=== PATIENT | male | born 1980 | race Caucasian/White ===

== ENCOUNTER 2021-04-23 08:01 | Emergency (ER) | payer BC ==
[2021-04-23 08:07] VITALS: BP 137/97; PULSE 100; RESP 16; TEMP 98.2
--- NOTE | 2021-04-23 08:34 | ED ---
General Adult HPI - General Chief complaint: Recheck/Abnormal Lab/Rx Stated complaint: lab reckeck Time Seen by Provider: 04/23/21 08:08 Source: patient, RN notes reviewed Mode of arrival: ambulatory Limitations: no limitations - History of Present Illness Initial comments: This a 40-year-old male presents emergency Department with police for independent blood draw. Patient was requesting blood draw as he was arrested for possible driving under the influence. Patient patient denies drug or alcohol patient denies any physical complaints. - Related Data Allergies Allergy/AdvReac Type Severity Reaction Status Date / Time shellfish derived Allergy Unknown Verified 04/23/21 08:07 Review of Systems ROS Statement: Those systems with pertinent positive or pertinent negative responses have been documented in the HPI. ROS Other: All systems not noted in ROS Statement are negative. Past Medical History Past Medical History: No Reported History History of Any Multi-Drug Resistant Organisms: None Reported Past Surgical History: No Surgical Hx Reported Past Psychological History: No Psychological Hx Reported Smoking Status: Unknown if ever smoked Past Alcohol Use History: Unable to Obtain Past Drug Use History: Unable to Obtain General Exam Limitations: no limitations General appearance: alert, in no apparent distress Head exam: Present: atraumatic, normocephalic, normal inspection Respiratory exam: Present: normal lung sounds bilaterally. Absent: respiratory distress, wheezes, rales, rhonchi, stridor Cardiovascular Exam: Present: regular rate, normal rhythm, normal heart sounds. Absent: systolic murmur, diastolic murmur, rubs, gallop, clicks Course Vital Signs 04/23/21 08:02 Temperature 98.2 F Pulse Rate 100 Respiratory 16 Rate Blood Pressure 137/97 O2 Sat by Pulse 96 Oximetry Disposition Clinical Impression: Encounter for laboratory test Disposition: HOME SELF-CARE Condition: Stable Additional Instructions: Please return to the Emergency Department if symptoms worsen or any other concerns. Is patient prescribed a controlled substance at d/c from ED?: No Referrals: None,Stated [Primary Care Provider] - 1-2 days Time of Disposition: 08:34
== END 2021-04-23 08:47 | disposition home or self-care (01) ==
LOC: EC 08:01
DX: Z01.89 Encounter for other specified special examinations (principal)
CPT/HCPCS: 36415; 80320; 99282